=== PATIENT | male | born 1990 | race Hispanic/Latino ===

== ENCOUNTER 2018-01-04 13:40 | Emergency (ER) | payer MEDICAID, OTHER | END 2018-01-04 16:25 | disposition home or self-care (01) | LOC: EDH 13:40 | DX: L73.8 Other specified follicular disorders (principal); Z72.0 Tobacco use ==

== ENCOUNTER 2019-03-30 11:03 | Emergency (ER) | payer SELFPAY ==
[2019-03-30] MEDS ORDERED: KETOROLAC TROMETHAMINE 60 MG/2 ML VIAL ONE (11:27)
== END 2019-03-30 12:08 | disposition home or self-care (01) ==
LOC: EDH 11:03
DX: R07.89 Other chest pain (principal)
CPT/HCPCS: 71046; 96372; 99284; J1885